=== PATIENT | female | born 1965 | race Caucasian/White ===

== ENCOUNTER → 2016-05-19 | Outpatient (CLI) | payer BC | LOC: MW.CHFP 16:54 | PROVIDERS: ATTEND Family Medicine | DX: Z01.419 Encounter for gynecological examination (general) (routine) without abnormal findings (principal) | CPT/HCPCS: G0145 ==

== ENCOUNTER 2017-10-06 11:44 | Emergency (ER) | payer BC ==
[2017-10-06] MEDS ORDERED: cefTRIAXone 1,000 MG in Lidocaine 1% 4 ML IM ONE (12:16)
--- NOTE | 2017-10-06 12:30 | EDM.PDOC ---
ED HPI GENERAL MEDICAL PROBLEM - General Chief Complaint: ENT Problem Stated Complaint: TONSILS ARE INFLAMED AND PAINFUL Time Seen by Provider: 10/06/17 11:49 Source of Information: Reports: Patient History Limitations: Reports: No Limitations - History of Present Illness INITIAL COMMENTS - FREE TEXT/NARRATIVE: HISTORY AND PHYSICAL: History of present illness: [The is a 52-year-old female who presents to the clinic with sore throat for the past 3 days. She states that this morning she had difficulty swallowing water or eat her breakfast due to the pain. Reports fever, nausea, and fatigue. She denies difficultly breathing, inability to swallow saliva, or lockjaw. She smokes. Denies any chronic conditions. Denies shortness of breath, palpitation, ear pain, and chills. Review of systems: As per history of present illness and below otherwise all systems reviewed and negative. Past medical history: As per history of present illness and as reviewed below otherwise noncontributory. Surgical history: As per history of present illness and as reviewed below otherwise noncontributory. Social history: No reported history of drug or alcohol abuse. Family history: As per history of present illness and as reviewed below otherwise noncontributory. Physical exam: HEENT: Atraumatic, normocephalic, pupils reactive, negative for conjunctival pallor or scleral icterus, mucous membranes moist, tonsills 2+ with exudate, neck supple, trachea midline. Swollen and tender anterior LAD Lungs: Clear to auscultation, breath sounds equal bilaterally, chest nontender. Heart: S1S2, regular, negative for clicks, rubs, or JVD. Abdomen: Soft, nondistended, nontender. Negative for masses or hepatosplenomegaly. Genitourinary: Deferred. Rectal: Deferred. Extremities: Neurovascular unremarkable. Neuro: Awake, alert, oriented. Cranial nerves II through XII unremarkable. Cerebellum unremarkable. Motor and sensory unremarkable throughout. Exam nonfocal. Notes: Diagnostics: [Rapid strep] Therapeutics: [IM Rocephin Penicillin 500mg TID x 10 days] Impression: [Strep tonsillitis] Plan: [#1 Take antibiotic as directed #2 You may alternate ibuprofen and tylenol every 4-6 hours as needed #3 Follow up with your PCP #4 Return to ED as needed as discussed ] Definitive disposition and diagnosis as appropriate pending reevaluation and review of above. Throat Pain Score (Numeric/FACES): 10 - Related Data Allergies Allergy/AdvReac Type Severity Reaction Status Date / Time No Known Allergies Allergy Verified 10/06/17 11:51 Home Meds: Home Meds . [No Known Home Meds] 10/06/17 [History] Past Medical History - Past Health History Medical/Surgical History: Denies Medical/Surgical History - Infectious Disease History Infectious Disease History: Reports: Chicken Pox Social & Family History - Family History Family Medical History: Noncontributory - Tobacco Use Smoking Status *Q: Current Every Day Smoker Years of Tobacco use: 10 Packs/Tins Daily: 0.5 Used Tobacco, but Quit: No Second Hand Smoke Exposure: Yes - Caffeine Use Caffeine Use: Reports: Tea - Recreational Drug Use Recreational Drug Use: No ED ROS ENT - Review of Systems Review Of Systems: ROS reveals no pertinent complaints other than HPI. ED EXAM, ENT - Physical Exam Exam: See Below (see dictation) Course - Vital Signs Last Recorded V/S: Last Vital Signs Temp 36.4 C 10/06/17 11:53 Pulse 100 10/06/17 11:53 Resp 20 10/06/17 11:53 BP 125/84 10/06/17 11:53 Pulse Ox 96 10/06/17 11:53 - Orders/Labs/Meds Orders: Active Orders 24 hr Category Date Time Status STREP SCRN A RAPID W CULT CONF [RM] Stat Lab 10/06/17 11:57 Ordered Meds: Medications Discontinued Medications Generic Name Dose Route Start Last Admin Trade Name Freq PRN Reason Stop Dose Admin Ceftriaxone Sodium 1,000 mg/ 4 mls @ 4 mls/sec 10/06/17 12:16 10/06/17 12:26 Lidocaine HCl IM 10/06/17 12:17 4 mls/sec ONETIME ONE Administration Departure - Departure Time of Disposition: 12:32 Disposition: Home, Self-Care 01 Condition: Good Clinical Impression: Strep tonsillitis - Discharge Information Instructions: Strep Throat, [id number] Referrals: PCP,None [Primary Care Provider] - Forms: ED Department Discharge Additional Instructions: The following information is given to patients seen in the emergency department who are being discharged to home. This information is to outline your options for follow-up care. We provide all patients seen in our emergency department with a follow-up referral. The need for follow-up, as well as the timing and circumstances, are variable depending upon the specifics of your emergency department visit. If you don't have a primary care physician on staff, we will provide you with a referral. We always advise you to contact your personal physician following an emergency department visit to inform them of the circumstance of the visit and for follow-up with them and/or the need for any referrals to a consulting specialist. The emergency department will also refer you to a specialist when appropriate. This referral assures that you have the opportunity for follow-up care with a specialist. All of these measure are taken in an effort to provide you with optimal care, which includes your follow-up. Under all circumstances we always encourage you to contact your private physician who remains a resource for coordinating your care. When calling for follow-up care, please make the office aware that this follow-up is from your recent emergency room visit. If for any reason you are refused follow-up, please contact the [facility] Emergency Department at and asked to speak to the emergency department charge nurse. [facility] [address] [place] [address] [place] [address] #1 Take antibiotic as directed #2 You may alternate ibuprofen and tylenol every 4-6 hours as needed #3 Follow up with your PCP #4 Return to ED as needed as discussed - My Orders Last 24 Hours: My Active Orders 10/06/17 11:57 STREP SCRN A RAPID W CULT CONF [RM] Stat - Assessment/Plan Last 24 Hours: My Active Orders 10/06/17 11:57 STREP SCRN A RAPID W CULT CONF [RM] Stat
== END 2017-10-06 12:45 | disposition home or self-care (01) ==
LOC: MW.ED 11:44
DX: J03.00 Acute streptococcal tonsillitis, unspecified (principal); F17.210 Nicotine dependence, cigarettes, uncomplicated
CPT/HCPCS: 87880; 96372; 99282; J0696; J2001

== ENCOUNTER 2018-08-02 09:41 | Day surgery (SDC) | payer BC ==
[~2018-08-02 09:41] MED LIST: Lactated Ringers 1,000 ML IV SCH; ceFAZolin 2 GM in Premix Bag 1 BAG IV ONE
[2018-08-02] MEDS ORDERED: Propofol 200 MG/20 ML SDV ONE (11:04)
[2018-08-02] MEDS ORDERED: Midazolam 1 MG/ML 2 ML SDV ONE (11:05)
[2018-08-02] MEDS ORDERED: fentaNYL 100 MCG/2 ML SDV ONE ×2 (11:05→12:54)
--- NOTE | 2018-08-02 11:28 | PCM.PREANE ---
Preanesthetic Assessment - Anesthesia/Transfusion/Family Hx Anesthesia History: Prior Anesthesia Reaction Other Type of Anesthesia Reaction Comment: "I get nightmares when in recovery after having anesthesia" Family History of Anesthesia Reaction: No Transfusion History: No Prior Transfusion(s) - Review of Systems General: No Symptoms Pulmonary: No Symptoms Cardiovascular: No Symptoms Gastrointestinal: No Symptoms Neurological: No Symptoms Other: Reports: None - Physical Assessment NPO Status Date: 08/01/18 NPO Status Time: 21:30 Pulse: 88 O2 Sat by Pulse Oximetry: 97 Respiratory Rate: 14 Height: 5 ft 7 in Weight: 81.193 kg ASA Class: 2 Mental Status: Alert & Oriented x3 Airway Class: Mallampati = 3 (Very small mouth) Dentition: Reports: Normal Dentition Thyro-Mental Finger Breadths: 3 Mouth Opening Finger Breadths: 3 ROM/Head Extension: Full Lungs: Clear to Auscultation, Normal Respiratory Effort - Allergies Allergies/Adverse Reactions: Allergies Allergy/AdvReac Type Severity Reaction Status Date / Time No Known Allergies Allergy Verified 10/06/17 11:51 - Acknowledgements Anesthesia Type Planned: General Anesthesia Pt an Appropriate Candidate for the Planned Anesthesia: Yes Alternatives and Risks of Anesthesia Discussed w Pt/Guardian: Yes Pt/Guardian Understands and Agrees with Anesthesia Plan: Yes PreAnesthesia Questionnaire - Past Health History Medical/Surgical History: Denies Medical/Surgical History HEENT History: Reports: Allergic Rhinitis, Other (See Below) Other HEENT History: wears glasses/contacts Cardiovascular History: Reports: High Cholesterol Respiratory History: Reports: None Gastrointestinal History: Reports: None Genitourinary History: Reports: None Musculoskeletal History: Reports: Arthritis, Fracture Other Musculoskeletal History: hx fx wrist and fingers Neurological History: Reports: None Psychiatric History: Reports: Eating Disorders Endocrine/Metabolic History: Reports: None Hematologic History: Reports: None Immunologic History: Reports: None Oncologic (Cancer) History: Reports: None Dermatologic History: Reports: None - Infectious Disease History Infectious Disease History: Reports: Chicken Pox - Past Surgical History Head Surgeries/Procedures: Reports: None HEENT Surgical History: Reports: None Cardiovascular Surgical History: Reports: None Respiratory Surgical History: Reports: None GI Surgical History: Reports: Appendectomy Female Surgical History: Reports: Hysterectomy Endocrine Surgical History: Reports: None Neurological Surgical History: Reports: None Musculoskeletal Surgical History: Reports: Arthroscopic Knee Other Musculoskeletal Surgeries/Procedures:: rt knee surgery Oncologic Surgical History: Reports: None Dermatological Surgical History: Reports: None - SUBSTANCE USE Smoking Status *Q: Current Every Day Smoker Tobacco Use Within Last Twelve Months: Cigarettes Recreational Drug Use History: No - HOME MEDS Home Medications: Home Meds Aspirin 2 tab PO ASDIRECTED PRN 08/01/18 [History] Cetirizine HCl [Zyrtec] 10 mg PO ASDIRECTED PRN 08/01/18 [History] atorvaSTATin Calcium [Atorvastatin Calcium] 20 mg PO DAILY 08/01/18 [History] - CURRENT (IN HOUSE) MEDS Current Meds: Current Medications Lactated Ringer's (Ringers, Lactated) 1,000 mls @ 125 mls/hr IV ASDIRECTED IAN Discontinued Medications Fentanyl (Sublimaze) Confirm Administered Dose 100 mcg .ROUTE .STK-MED ONE Stop: 08/02/18 11:06 Cefazolin Sodium/Dextrose 2 gm (/ Premix) 50 mls @ 100 mls/hr IV ONETIME ONE Stop: 08/02/18 08:45 Midazolam HCl (Versed 1 Mg/Ml) Confirm Administered Dose 2 mg .ROUTE .STK-MED ONE Stop: 08/02/18 11:06 Propofol (Diprivan 20 Ml) Confirm Administered Dose 200 mg .ROUTE .STK-MED ONE Stop: 08/02/18 11:05
[2018-08-02] MEDS ORDERED: ceFAZolin 1 GM Vial ONE (11:53)
[2018-08-02] MEDS ORDERED: Lidocaine 1% 20 ML MDV ONE (11:53)
[2018-08-02] MEDS ORDERED: Bupivacaine 0.5% 30 ML SDV ONE (11:53)
[2018-08-02] MEDS ORDERED: HYDROmorphone 2 MG/ML Syringe ONE (12:36)
[2018-08-02] MEDS ORDERED: ePHEDrine 50 MG/ML SDV ONE (14:18)
[2018-08-02] MEDS ORDERED: Dexamethasone 4 MG/ML 5 ML MDV ONE (14:19)
[2018-08-02] MEDS ORDERED: Ondansetron 4 MG/2 ML SDV ONE (14:19)
--- NOTE | 2018-08-02 15:10 | PN ---
SUBJECTIVE: The patient is a 53-year-old female. Date of surgery is today, August 02, 2018. Surgeon is Juan Ritter DPM. Planned procedure is exostectomy, 1st metatarsophalangeal joint, left foot, and exostectomy, 1st metatarsophalangeal joint, right foot. Anesthesia, general LMA. Hemostasis will be with the above- ankle pneumatic tourniquets, bilateral. ALLERGIES: The patient has no known allergies. The patient was cleared for surgery on July 19, 2018, by Dr. Nikita Watts. ACTIVE PROBLEMS: 1. Allergic rhinitis. 2. Cystocele, midline. 3. Hypoglycemia. 4. Overweight. 5. Paresthesias. 6. Wrist pain on the right. PAST MEDICAL HISTORY: History of anorexia, but also bulimia, and hypoglycemia. SURGICAL HISTORY: Includes appendicostomy and hysterectomy and history of knee surgery on the right. SOCIAL HISTORY: The patient is a smoker as well. LABORATORY DATA: White blood cells 7.34, red blood cells 4.71, hemoglobin 14.5, hematocrit 43.4, platelets 288. EKG showed normal sinus rhythm. Risks and benefits disccused with patient. All of the patient's questions have been answered. There were no guarantees expressed or implied. The patient has consented in writing with a witness present to the planned procedures today as stated above. KRISTINA SOLIS /[id number] MTDArnaldo
--- NOTE | 2018-08-02 15:22 | PCM.POSTAN ---
POST ANESTHESIA ASSESSMENT - MENTAL STATUS Mental Status: Alert - RESPIRATORY Respiratory Status: Respiratory Rate WNL, Airway Patent, O2 Saturation Stable - CARDIOVASCULAR CV Status: Pulse Rate WNL, Blood Pressure Stable - GASTROINTESTINAL GI Status: No Symptoms - POST OP HYDRATION Hydration Status: Adequate & Stable
--- NOTE | 2018-08-02 16:11 | PCM48HPAN ---
Post Anesthesia Note - EVALUATION WITHIN 48HRS OF ANESTHETIC Vital Signs in Normal Range: Yes Patient Participated in Evaluation: Yes Respiratory Function Stable: Yes Airway Patent: Yes Cardiovascular Function Stable: Yes Hydration Status Stable: Yes Pain Control Satisfactory: Yes Nausea and Vomiting Control Satisfactory: Yes Mental Status Recovered: Yes Pulse Rate: 88 SaO2: 96 Resp Rate: 16 Blood Pressure: 117/75
--- NOTE | 2018-08-02 16:23 | PCM.OPNOTE ---
- General Post-Op/Procedure Note Date of Surgery/Procedure: 08/02/18 Operative Procedure(s): 1. Exostectomy first metatarsal phalangeal joint left foot. 2. Exostectomy first metatarsal phalangeal joint right foot Findings: consistent with diagnosis Pre Op Diagnosis: 1. exostosis and loose body first metatarsal phalangeal joint left foot. 2. exostosis and loose body first metatarsal phalangeal joint right foot Post-Op Diagnosis: 1. exostosis and loose body first metatarsal phalangeal joint left foot. 2. exostosis and loose body first metatarsal phalangeal joint right foot Anesthesia Technique: General LMA Primary Surgeon: Juan Ritter Pathology: bone from first metatarsal phalangeal joint of left foot and right foot EBL in mLs: 10 Condition: Good Free Text/Narrative:: Intake & Output 08/02/18 08/02/18 08/02/18 06:59 14:59 22:59 Intake Total 3300 Balance 3300 materials: 3-0 Vicryl, 4-0 Vicryl, 4-0 Stratafix injectables: 16 ml 0.5% marcaine plain divided equally to left and right foot
--- NOTE | 2018-08-03 00:03 | OR ---
SURGEON: Juan Ritter DPM DATE OF PROCEDURE: 08/02/2018 PREOPERATIVE DIAGNOSES: 1. Exostosis and loose body, left first metatarsophalangeal joint. 2. Exostosis and loose body, right first metatarsophalangeal joint. ANESTHESIA: General LMA. HEMOSTASIS: Above-ankle pneumatic tourniquet on each extremity inflated to a pressure of 250 mmHg. PATHOLOGY: Bone from first metatarsophalangeal joint, left foot, and bone from first metatarsophalangeal joint, right foot. ESTIMATED BLOOD LOSS: 10 mL. MATERIALS: 3-0 Vicryl, 4-0 Vicryl, 4-0 Stratafix, and 4-0 Prolene suture. INJECTABLES: 16 mL of 0.5% Marcaine plain injected at the conclusion of the procedure, divided equally 8 mL to each foot. JUSTIFICATION FOR THE PROCEDURE: The patient has longstanding complaint of arthritis and pain to the first metatarsophalangeal joint of both feet. Examination and x-ray evaluation have documented severe exostoses and loose bodies in the joint. The patient is also being treated conservatively with custom-made orthotics with rigid Church's extensions. However, this will not be sufficient for the damage that has been done to these joints to be avoided simply by conservative measures. Removal of excess bone and loose bodies are imperative for the patient to have a chance of sufficient relief to avoid further surgery consisting of fusion of these joints. The patient understands that fusion may eventually become necessary. The patient, questions have been asked and answered completely. The patient has signed the written consent form for the procedure today with a witness present and agrees to proceed with surgery today consisting of exostectomy of the first metatarsophalangeal joint of both feet. PROCEDURE PERFORMED: 1. Exostectomy of first metatarsophalangeal joint, left foot. 2. Exostectomy of first metatarsophalangeal joint, right foot. PROCEDURE IN DETAIL: The patient was brought to the operating room and placed on operating table in a supine position, at which time an aseptic scrub and drape was performed about the patient's left lower extremity and right lower extremity and above-ankle pneumatic tourniquets were fixed and the patient was draped in the usual aseptic manner. Attention was then directed to the left foot where procedure #1 commenced. Procedure #1: Exostectomy, first metatarsophalangeal joint, left foot. The left foot was examined, and using a marking pen, a 4 cm linear incision was planned over the dorsal aspect of the first metatarsophalangeal joint of the left foot. The foot was then covered with stockinette, exsanguinated with an Esmarch bandage, and the above-ankle pneumatic tourniquet was inflated to a pressure of 250 mmHg. Incision was then made with a #15 blade mounted on a #3 handle through the superficial skin and the skin was retracted and dissection continued through the subcutaneous layer and capsular layers of the first metatarsophalangeal joint, dorsal aspect, with care taken to retract all identified neurovascular and tendinous structures out of the way, any small bleeders were actually avoided. No Bovie was necessary. Dissection proceeded to bone and the bone of the first metatarsal head, first metatarsophalangeal joint, and proximal aspect of the proximal phalanx of the hallux were dissected to identify the exostoses that existed on both the metatarsal and the proximal phalanx of the hallux. Loose bodies were identified in the joint and were removed using a combination of sharp and blunt dissection with a [place] elevator, with a #15 blade, and with a small bone rongeur. Following removal of loose bodies, additional exostoses were identified and were removed with bone rongeur. The area was then flushed with copious amounts of normal sterile saline and a reciprocating power rasp was used to smooth both the proximal phalanx of the hallux and the head of the first metatarsal. 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 The area was then flushed with normal sterile saline again. Intraoperative fluoroscopy was utlized as necessary. Preoperative x-rays and postoperative x-rays were taken to document the changes. Procedure #2: Exostectomy, first metatarsophalangeal joint, right foot. The right foot was examined, and using a marking pen, a 4 cm linear incision was planned over the dorsal aspect of the first metatarsophalangeal joint of the right foot. The foot was then covered with stockinette, exsanguinated with an Esmarch bandage, and the above-ankle pneumatic tourniquet was inflated to a pressure of 250 mmHg. Incision was then made with a #15 blade mounted on a #3 handle through the superficial skin and the skin was retracted and dissection continued through the subcutaneous layer and capsular layers of the first metatarsophalangeal joint, dorsal aspect, with care taken to retract all identified neurovascular and tendinous structures out of the way, any small bleeders were actually avoided. No Bovie was necessary. Dissection proceeded to bone and the bone of the first metatarsal head, first metatarsophalangeal joint, and proximal aspect of the proximal phalanx of the hallux were dissected to identify the exostoses that existed on both the metatarsal and the proximal phalanx of the hallux. Loose bodies were identified in the joint and were removed using a combination of sharp and blunt dissection with a [place] elevator, with a #15 blade, and with a small bone rongeur. Following removal of loose bodies, additional exostoses were identified and were removed with bone rongeur. The area was then flushed with copious amounts of normal sterile saline and a reciprocating power rasp was used to smooth both the proximal phalanx of the hallux and the head of the first metatarsal. 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 The area was then flushed with normal sterile saline again. Intraoperative fluoroscopy was utlized as necessary. Preoperative x-rays and postoperative x-rays were taken to document the changes. The tourniquets were deflated at the conclusion of each procedure. Tourniquet time on the left was 56 minutes and on the right was 41 minutes. Both sides were closed as follows: the deep layers closed with 3-0 Vicryl suture, subcutaneous layer with 4-0 Vicryl suture, and the superficial skin was reapproximated with 4-0 Stratafix suture on both, and on the left with two sutures using 4-0 Prolene suture. Both sides were covered with Betadine-soaked Xeroform gauze, 4 x 4 fluff gauze, Kerlix roll, and secured with an Shimon bandage. Following deflation of the tourniquet, the patient tolerated the procedure on each foot well with a prompt hyperemic response to both left and right foot at the conclusion of each of those procedure. The patient was transported having tolerated the procedures and anesthesia well and with all vital signs stable from the operating room to the recovery room, and the patient will be following up with me within a week in my office. The patient has instructions to contact me should she need any prescription level pain medication as well as any postoperative shoes or shower bag. KRISTINA SOLIS /[id number] MTDD
== END 2018-08-02 16:30 | disposition home or self-care (01) ==
LOC: MW.SDS 09:41
PROVIDERS: ATTEND Podiatrist Foot & Ankle Surgery
DX: M25.775 Osteophyte, left foot (principal); M25.774 Osteophyte, right foot; M94.272 Chondromalacia, left ankle and joints of left foot; M19.072 Primary osteoarthritis, left ankle and foot; M19.071 Primary osteoarthritis, right ankle and foot; E78.00 Pure hypercholesterolemia, unspecified; J30.9 Allergic rhinitis, unspecified; F17.210 Nicotine dependence, cigarettes, uncomplicated; N81.11 Cystocele, midline; R20.2 Paresthesia of skin; E16.2 Hypoglycemia, unspecified; E66.9 Obesity, unspecified; Z68.28 Body mass index [BMI] 28.0-28.9, adult; Z79.82 Long term (current) use of aspirin; Z79.899 Other long term (current) drug therapy
CPT/HCPCS: 28124; J0690; J1100; J1170; J2250; J2405; J2704; J3010; J3490; J7120; 01480; J2001